=== PATIENT | female | born 1950 | race Caucasian/White ===

== ENCOUNTER → 2016-02-18 | Outpatient (CLI) | payer OTHER ==
--- NOTE | 2016-02-18 20:23 | DX ---
Six Views of the Lumbar Spine Clinical Indication: Back pain. Comparison: July 08, 2009. Findings: There has been a significant increase in the scoliotic curvature. The high levocurvature now measures 39 degrees, previously measuring 17 degrees, as measured from T11 to L2. The convex rig ht scoliotic curvature of the lower lumbar spine measures 30 degrees, previously measuring 24 degrees . The 3.3-mm anterolisthesis of L4 on L5 is unchanged from the prior examination. Multilevel degene rative changes are present. Multilevel facet osteoarthritis is present. Impressions 1. Increased scoliotic curvature of the spine, measurements above. 2. Stable anterolisthesis of L4 on L5 of 3.3 mm. 3. Multilevel degenerative disk disease and facet osteoarthritis.
== END ==
LOC: FIMAGING 11:50
PROVIDERS: ATTEND Physical Medicine & Rehabilitation Neuromuscular Medicine
DX: M41.9 Scoliosis, unspecified (principal); M43.16 Spondylolisthesis, lumbar region; M51.36 Other intervertebral disc degeneration, lumbar region; M47.896 Other spondylosis, lumbar region

== ENCOUNTER → 2016-03-03 | Outpatient (CLI) | payer OTHER ==
--- NOTE | 2016-03-03 11:27 | US ---
CORRECTED ORDERING PHYSICIAN Thyroid Ultrasound History: Fullness left side of the neck on physical exam. Rule out thyroid nodule. Findings: The right and left lobes of the thyroid have a diffusely heterogeneous echotexture without evidence of significant focal mass. The right and left lobes of the thyroid are relatively small in size. Color flow evaluation of the right and left lobes demonstrate slight increase in vascularity. The right lobe of the thyroid measures 2.7 x 0.9 x 0.7 cm and the left lobe measures 3.6 x 1.4 x 1 cm. No significant lymphadenopathy is seen. There are 2 nodes seen on the right representing level 3-level 4 nodes. The larger one measures 18 x 6 x 11 mm with normal fatty hilum. Just inferior to this and lateral to the internal jugular vein is a reactive appearing node that measures 14 x 7 x 5 mm. Impression: 1. Diffusely heterogeneous echotexture with small size involving the right and left lobes of the thyroid suggestive of underlying thyroiditis. 2. Reactive level 3 to level 4 nodes suspected lower neck on the right. MTDD
--- NOTE | 2016-03-03 15:45 | MA ---
Screening Digital Mammogram With iCAD Analysis Clinical Indications: Routine screening. Technique: Standard cephalocaudal and mediolateral oblique projections were obtained. This examinatio n was processed by the iCAD computer aided detection system. Comparison: September 2014, August 2013, July 2011, September 2008, September 2007, September 2006. Breast density: Type C; Heterogeneously dense. Findings: CAD was reviewed. No masses, suspicious calcifications or other signs of malignancy are id entified. There has been no significant change in the appearance of either breast. Impression: Negative mammogram. BI-RADS 1. Recommendation: Routine mammographic screening in one year as long as physical examination is negativ e in this patient with heterogeneously dense breasts. [facility] will send a result letter to the patient. Dense breast parenchyma diminishes mammographic sensitivity. Negative mammography should not preclude additional workup of a clinically suspicious finding. The patient's information is entered into a reminder system with a target due date for her next mammo gram.
== END ==
LOC: BMCIMAGING 10:21
DX: Z12.31 Encounter for screening mammogram for malignant neoplasm of breast (principal); E07.9 Disorder of thyroid, unspecified
CPT/HCPCS: 76536-PO; G0202

== ENCOUNTER → 2016-03-20 | Outpatient (CLI) | payer OTHER ==
--- NOTE | 2016-03-20 10:23 | US ---
Complete Retroperitoneal Ultrasound History: Microscopic hematuria. Comparison: MR abdomen May 20, 2013, CT abdomen and pelvis May 18, 2013. Findings: The right kidney measures 10.7 x 3.9 x 3.4 cm and the left kidney measures 10.0 x 5.2 x 4.7 cm. The kidneys have normal echotexture, cortical thickness, and contour without pelvocaliectasis. The bladder is normal. Bilateral ureteral jets are present. Prevoid bladder volume is 618 mL. Postv oid bladder volume is 58 mL. Impression: 1. No visible etiology for the patient's hematuria. Consider CT urogram if hematuria persists and cli nical suspicion warrants. 2. Postvoid residual of 58 mL.
== END ==
LOC: BMCIMAGING 07:41
PROVIDERS: ATTEND Urology
DX: R31.29 Other microscopic hematuria (principal)

== ENCOUNTER → 2017-01-01 | Outpatient (CLI) | payer OTHER, MEDICARE | LOC: FIMAGING 09:17 | PROVIDERS: ATTEND Neurological Surgery | DX: M41.84 Other forms of scoliosis, thoracic region (principal); M41.85 Other forms of scoliosis, thoracolumbar region; M51.35 Other intervertebral disc degeneration, thoracolumbar region; M43.16 Spondylolisthesis, lumbar region; M51.34 Other intervertebral disc degeneration, thoracic region; M43.14 Spondylolisthesis, thoracic region ==

== ENCOUNTER → 2017-01-03 | Outpatient (CLI) | payer OTHER, MEDICARE | LOC: BMCIMAGING 09:55 | PROVIDERS: ATTEND Neurological Surgery | DX: Z13.820 Encounter for screening for osteoporosis (principal); M85.89 Other specified disorders of bone density and structure, multiple sites; M41.25 Other idiopathic scoliosis, thoracolumbar region ==

== ENCOUNTER → 2017-04-13 | Outpatient (CLI) | payer OTHER, MEDICARE | LOC: FIMAGING 08:57 | PROVIDERS: ATTEND Internal Medicine | DX: Z12.31 Encounter for screening mammogram for malignant neoplasm of breast (principal) ==

== ENCOUNTER → 2017-07-13 | Outpatient (CLI) | payer OTHER, MEDICARE | LOC: FIMAGING 12:51 | PROVIDERS: ATTEND Neurological Surgery | DX: M41.26 Other idiopathic scoliosis, lumbar region (principal); M41.25 Other idiopathic scoliosis, thoracolumbar region; M43.16 Spondylolisthesis, lumbar region; M51.36 Other intervertebral disc degeneration, lumbar region; M51.35 Other intervertebral disc degeneration, thoracolumbar region ==

== ENCOUNTER → 2017-08-16 | Outpatient (CLI) | payer OTHER, MEDICARE ==
[~2017-08-16] MED LIST: IOPAMIDOL (ISOVUE-300) 100 ML BTL ONE
== END ==
LOC: FIMAGING 09:27
PROVIDERS: ATTEND Surgery
DX: M51.26 Other intervertebral disc displacement, lumbar region (principal); M43.16 Spondylolisthesis, lumbar region; M48.061 Spinal stenosis, lumbar region without neurogenic claudication
CPT/HCPCS: 74177; Q9967

== ENCOUNTER → 2017-09-27 | Outpatient (CLI) | payer OTHER, MEDICARE | LOC: FIMAGING 06:54 | PROVIDERS: ATTEND Physician Assistant | DX: K82.4 Cholesterolosis of gallbladder (principal); K76.89 Other specified diseases of liver; I70.0 Atherosclerosis of aorta ==

== ENCOUNTER → 2018-05-06 | Outpatient (CLI) | payer OTHER, MEDICARE | LOC: BMCIMAGING 08:29 | PROVIDERS: ATTEND Internal Medicine | DX: Z12.31 Encounter for screening mammogram for malignant neoplasm of breast (principal) ==

== ENCOUNTER → 2018-07-18 | Outpatient (CLI) | payer OTHER, MEDICARE | LOC: FLAB 11:07 ==